=== PATIENT | female | born 1980 | race Caucasian/White ===

== ENCOUNTER 2016-09-06 10:08 | Inpatient (IN) | payer BC, OTHER ==
[~2016-09-06] VITALS: Ht 162.6 cm; Wt 80.7 kg
[2016-09-06 10:08] VITALS: BP_SYST 146
--- NOTE | 2016-09-06 10:08 | NUR ---
BROUGHT IN BY ACLS FOUZIA 66 AND YAHAIRA GARCIA, PLACED IN BED #7 AND TRIAGED. REPORT GIVEN TO BETTY
--- NOTE | 2016-09-06 10:10 | NUR ---
ER at bedside examining patient.
--- NOTE | 2016-09-06 10:12 | NUR ---
Pt bib LACF c/o SOB and tachycardiac while at work. 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 Pt unable to take deep breath. Pt 100% O2 sat on RA. IV 20G LAC prior to ED arrival. O2 NC 2L applied for resp support.
[2016-09-06] MEDS ORDERED: LORazepam 2 MG/ML VIAL (FOR ER USE) IVP ONE (10:15)
[2016-09-06] MEDS ORDERED: ASPIRIN 81 MG TAB.CHEW PO ONE (10:15)
--- NOTE | 2016-09-06 10:15 | NUR ---
Pt reports S/S began on Tuesday s/p run.
--- NOTE | 2016-09-06 10:35 | NUR ---
Pt medicated per MD order tolerated well.
[2016-09-06 10:40] LABS: BASOPHILS # (AUTO) 0.1 K/uL (0.0-0.2)
--- NOTE | 2016-09-06 10:44 | NUR ---
Pt reports ease in resp effort after medication.
[2016-09-06 10:47] LABS: BASOPHILS % (AUTO) 0.7 % (0.0-2.0); EOSINOPHILS # (AUTO) 0.3 K/uL (0.0-0.4); EOSINOPHILS % (AUTO) 3.4 % (0.0-4.0); HEMOGLOBIN 13.4 g/dL (12.0-16.0); LYMPHOCYTES # (AUTO) 2.7 K/uL (1.0-5.5); LYMPHOCYTES % (AUTO) 32.5 % (20.5-51.5); MEAN CORPUSCULAR HEMOGLOBIN 28 pg (27-31); MEAN CORPUSCULAR HGB CONC 34 % (32-36); MEAN CORPUSCULAR VOLUME 85 fL (79.0-98.0); MONOCYTES # (AUTO) 0.5 K/uL (0.0-1.0); MONOCYTES % (AUTO) 5.4 % (1.7-9.3); NEUTROPHILS # (AUTO) 4.8 K/uL (1.8-7.7); PLATELET COUNT (AUTO) 274 K/uL (130-430); RED BLOOD CELL COUNT(AUTO) 4.72 MIL/uL (4.2-6.2); RED CELL DISTRIBUTION WIDTH 11.9 % (9.0-15.0); WHITE BLOOD COUNT (AUTO) 8.4 K/uL (4.8-10.8)
[2016-09-06 10:50] LABS: PROTHROMBIN TIME 11.1 SECS (9.5-12.5)
[2016-09-06 10:51] LABS: ALBUMIN 3.7 g/dL (3.4-4.8); CALCIUM 9.2 mg/dL (8.4-11.0); CREATININE 1.25 mg/dL (0.55-1.30); POTASSIUM 3.5 mmol/L (3.5-5.1); TOTAL BILIRUBIN 0.4 mg/dL (0.0-1.0); TOTAL PROTEIN, SERUM 7.9 g/dL (6.4-8.3)
--- NOTE | 2016-09-06 11:35 | NUR ---
Pt continues to reports ease in resp effort no acute distress noted at this tiome
--- NOTE | 2016-09-06 13:10 | NUR ---
Admission orders received from Dr. Marques, orders entered by
[2016-09-06 13:23] LABS: BILIRUBIN,URINE NEGATIVE (NEGATIVE); BLOOD, URINE NEGATIVE (NEGATIVE); CLARITY/URINE CLEAR (CLEAR); COLOR,URINE YELLOW (YELLOW); GLUCOSE,URINE 3+ (NEGATIVE); KETONES,URINE NEGATIVE (NEGATIVE); LEUKOCYTE ESTERASE ,URINE NEGATIVE (NEGATIVE); NITRITE, URINE NEGATIVE (NEGATIVE); PH,URINE 5.5 (5.0-8.0); PROTEIN URINE NEGATIVE (NEGATIVE); UROBILINOGEN,URINE 0.2 (0.2-1.0)
[2016-09-06 13:35] LABS: BACTERIA,URINE RARE /HPF (None Seen); MUCUS,URINE 1+ /LPF (None Seen); RBC,URINE 0-3 /HPF (0-3); WBC,URINE 0-3 /HPF (0-3)
--- NOTE | 2016-09-06 13:35 | NUR ---
Patient will be admitted to care of DR. Marques. Admitted to Telemetry unit. Will go to room 108C. Summary report printed. Report given to Danis MARRUFO.
[2016-09-06 13:36] LABS: BARBITURATE, URINE NEGATIVE (NEG <=200); BENZODIAZEPINE, URINE NEGATIVE (NEG <=150); CANNABINOID, URINE NEGATIVE (NEG <=50); COCAINE, URINE NEGATIVE (NEG <=150); METHAMPHETAMINES SCREEN,URINE NEGATIVE (NEG <=500); OPIATE, URINE NEGATIVE (NEG <=100); PHENCYCLIDINE SCREEN,URINE NEGATIVE (NEG <=25); UR TRICYCLIC ANTIDEPRESSANTS NEGATIVE (NEG <=300); URINE AMPHETAMINE NEGATIVE (NEG <=500); URINE METHADONE NEGATIVE (NEG <=200); URINE OXYCODONE SCREEN NEGATIVE (NEG <=100); URINE PROPOXYPHENE SCREEN NEGATIVE (NEG <=300)
[2016-09-06] MEDS ORDERED: GLU500 PO (13:44)
--- NOTE | 2016-09-06 14:08 | NUR ---
ADMISSION: The patient, MILLY WILSON, 36 y/o, F admitted by FLORENCIO NEWTON MD, was given written information regarding hospital policies, unit procedures and contact persons. Valuables were checked.
[2016-09-06 14:17] VITALS: BP_SYST 109
[2016-09-06 16:00] VITALS: BP_SYST 121
[2016-09-06] MEDS ORDERED: MORPHINE 2 MG/ML INJ. SYRINGE IVP PRN (17:00)
[2016-09-06] MEDS ORDERED: LEVO1TBD8 PO (17:03)
--- NOTE | 2016-09-06 17:26 | NUR ---
AWAITING APPROVAL FOR PAIN MEDICATION FROM PHARMACIST ORDERED BY MD AT PATIENT REQUEST.
[2016-09-06] MEDS: ACETAMINOPHEN 325 MG TABLET PO PRN ×2 (17:31→21:07)
--- NOTE | 2016-09-06 17:49 | NUR ---
GIVEN PRN TYLENOL REQUESTED BY PATIENT AND PATIENT TOLERATED WELL.
--- NOTE | 2016-09-06 19:22 | NUR ---
Rounds for handoff report. Needs met at this time.
[2016-09-06 19:30] VITALS: BP_SYST 121
--- NOTE | 2016-09-06 19:42 | NUR ---
PM ASSESSMENT PT. A/OX4, VITAL SIGNS STABLE, NO DISTRESS NOTED, DENIES PAIN. UPDATED WITH PLAN OF CARE, CALL LIGHT WITHIN REACH, WILL CONTINUE TO MONITOR.
[2016-09-06] MEDS ORDERED: ASPIRIN 325 MG TABLET PO ONE (19:45)
--- NOTE | 2016-09-06 21:30 | NUR ---
RN ROUNDS PT. RESTING QUIETLY, VITAL SIGNS STABLE, NO DISTRESS NOTED, DENIES PAIN. CALL LIGHT WITHIN REACH, WILL CONTINUE TO MONITOR.
--- NOTE | 2016-09-06 23:30 | NUR ---
RN ROUNDS PT. RESTING QUIETLY, NO DISTRESS NOTED, DENIES PAIN. CALL LIGHT WITHIN REACH, WILL CONTINUE TO MONITOR.
--- NOTE | 2016-09-07 00:06 | NUR ---
NOTE: PATIENT REQUESTED NOT TO HAVE HER VITALS TAKEN DURING THE NIGHT, SHE DID NOT WANT HER SLEEP DISTURBED.
--- NOTE | 2016-09-07 01:30 | NUR ---
RN ROUNDS PT. RESTING QUIETLY, VITAL SIGNS STABLE, NO DISTRESS NOTED, DENIES PAIN. CALL LIGHT WITHIN REACH, WILL CONTINUE TO MONITOR.
--- NOTE | 2016-09-07 03:30 | NUR ---
RN ROUNDS PT. RESTING QUIETLY, VITAL SIGNS STABLE, NO DISTRESS NOTED, DENIES PAIN. CALL LIGHT WITHIN REACH, WILL CONTINUE TO MONITOR.
--- NOTE | 2016-09-07 05:30 | NUR ---
RN ROUNDS PT. RESTING QUIETLY, VITAL SIGNS STABLE, NO DISTRESS NOTED, DENIES PAIN. CALL LIGHT WITHIN REACH, WILL CONTINUE TO MONITOR.
--- NOTE | 2016-09-07 06:33 | NUR ---
CLOSING NOTES PT. RESTING QUIETLY, VITAL SIGNS STABLE, NO DISTRESS NOTED, DENIES PAIN. CALL LIGHT WITHIN REACH, IV ACCESS FLUSHED WELL, ALL ANTICIPATED NEEDS MET, KEPT COMFORTABLE.
[2016-09-07] MEDS: ACETAMINOPHEN 325 MG TABLET PO PRN ×2 (06:46→10:30)
--- NOTE | 2016-09-07 07:30 | NUR ---
AM Assessment Received pt AAOx4, able to verbalize needs. Pt denies any pain currently. No SOB or signs of distress noted. Respirations even and unlabored on RA. Skin warm and dry. IV saline lock in RAC intact, patent, no signs of infiltration noted. Pt SR on tele monitor, HR 76. Bed in lowest position. Call light in reach. Will continue to monitor.
[2016-09-07 08:00] VITALS: BP_SYST 116
[2016-09-07] MEDS ORDERED: ASPIRIN 325 MG TABLET PO SCH (09:00)
--- NOTE | 2016-09-07 10:23 | NUR ---
Consult called: for Dr. Epps, regarding chest pain, ordered by Dr. Marques, spoke with Eleonora.
[2016-09-07] MEDS ORDERED: busPIRone HCL 5 MG TABLET PO ONE (10:30)
--- NOTE | 2016-09-07 10:30 | NUR ---
MD/Pain/Patient Round Pt seen by Dr. Marques and Dr. Epps. Pt sitting in bed watching TV. Pt complaining of headache pain 12/06, administered Tylenol PRN, pt states, "I don't want morphine for severe pain." Pt states headache "could be from caffeine withdrawal." Will continue to monitor.
[2016-09-07 10:33] LABS: ANION GAP 8 (5-15); CALCIUM 9.3 mg/dL (8.4-11.0); CHLORIDE 103 mmol/L (98-107); CREATININE 1.03 mg/dL (0.55-1.30); GLUCOSE 172 mg/dL (70-99); POTASSIUM 3.8 mmol/L (3.5-5.1); SODIUM SERUM 139 mmol/L (136-145); UREA NITROGEN, BLOOD 11 mg/dL (8-21)
[2016-09-07 10:41] LABS: GFR AFRICAN AMERICAN 79 mL/min (>90)
[2016-09-07 10:52] LABS: ALANINE AMINOTRANSFERASE 226 U/L (12-78); ALBUMIN 3.6 g/dL (3.4-4.8); ASPARTATE AMINOTRANSFERASE 128 U/L (10-37); TOTAL BILIRUBIN 0.5 mg/dL (0.0-1.0); TOTAL PROTEIN, SERUM 7.4 g/dL (6.4-8.3)
--- NOTE | 2016-09-07 11:30 | NUR ---
Dr. Epps Spoke with Dr. Epps regarding pt's troponin and lab test results. Dr. Epps states, "She is stable to go home." Will continue with plan of care.
[2016-09-07 11:58] VITALS: BP_SYST 116
--- NOTE | 2016-09-07 12:13 | NUR ---
D/C Patient Patient given medication reconciliation form and D/C instructions. Patient verbalized understanding. MD discussed with patient the results and treatment provided. Ambulatory with steady gait for discharge to home. Patient in stable condition, ID band removed. IV catheter removed, intact and dressing applied, no active bleeding. Rx given. Patient educated on pain management. All belongings sent with patient. Patient discharge home with , Shankar, via private auto. Patient refused lunch tray, states, "I want to eat at home." Also offered patient discharge escort, patient states she "wants to walk."
[2016-09-07 12:37] VITALS: BP_SYST 123
[2016-09-07] MEDS ORDERED: busPIRone HCL 5 MG TABLET PO SCH (21:00)
--- NOTE | 2016-09-08 14:59 | NUR ---
Discharge Follow Up Phone Call: PILOT SUBMERSIBLE called and spoke with pt ([phone]). Pt states that she is doing well overall; pt states that the doctor discussed pt starting a new medication for anxiety, but pt reports that she did not receive a prescription. PILOT SUBMERSIBLE encouraged pt to contact her PCP for a follow up appointment to discuss anxiety medication. PILOT SUBMERSIBLE offered to assist pt with scheduling an appointment, but pt states that she will contact her PCP today to schedule an appointment. Pt states that she checks her blood sugar as directed by PCP. Pt did not express any other needs or concerns and denied the need for additional follow up at this time. No further follow up phone calls required at this time.
== END 2016-09-07 12:13 | disposition home or self-care (01) | DRG 880 ==
LOC: SED 10:08 → STU 13:19
PROVIDERS: ADMIT Internal Medicine Hospice and Palliative Medicine; ATTEND Internal Medicine Hospice and Palliative Medicine
DX: F41.9 Anxiety disorder, unspecified (principal); E66.01 Morbid (severe) obesity due to excess calories; E11.9 Type 2 diabetes mellitus without complications; Z79.84 Long term (current) use of oral hypoglycemic drugs; Z83.3 Family history of diabetes mellitus; Z84.89 Family history of other specified conditions; Z80.0 Family history of malignant neoplasm of digestive organs; Z68.30 Body mass index [BMI] 30.0-30.9, adult
CPT/HCPCS: 36415; 71010; 76700-TC; 80053; 80061; 80307; 81000-TC; 82962; 83690-TC; 83880; 84484; 84703; 85025; 85379; 85610-TC; 85730-TC; 93005; 96374; 99285; J2060